=== PATIENT | female | born 2000 | race Caucasian/White ===

== ENCOUNTER 2019-06-05 19:02 | Emergency (ER) | payer MEDICAID, OTHER ==
[~2019-06-05] VITALS: Ht 162.6 cm; Wt 63.1 kg
[~2019-06-05 19:02] MED LIST: ACET500C5 PO; ALBU8.5H8 INH; CIPR500T4 PO; FAMO-96 PO; GUAI5SYR2 PO; IBUP-1561 PO; LACT1CAP57 PO; MAG-19 PO; SAME
[2019-06-05 19:19] VITALS: RESP 18; Ht 162.6 cm; Wt 63.1 kg
[2019-06-05] MEDS ORDERED: DICYCLOMINE 10 MG CAP PO ONE (21:00)
[2019-06-05] MEDS ORDERED: LIDOCAINE/MYLANTA 40 ML BTL PO ONE (21:00)
[2019-06-05 22:13] VITALS: BP 122/65; PULSE 56
--- NOTE | 2019-06-06 02:00 | ERD ---
ER Documentation Chief Complaint Chief Complaint bloating and abdominal discomfort for two weeks with nausea HPI Patient 19-year-old female presented to ED for crampy abdominal pain x2 weeks. Patient denies bleeding. Patient's last menstrual cycle was May 08. Patient states that she has been having diarrhea for the last 2 weeks. Patient states that she was swimming in the [place] and she swallowed some water. Since then she has been experiencing this crampy abdominal pain and nonbloody diarrhea. Patient denies any allergies to medication. Patient states she is not currently on any medications the patient is unaware if she is . She denies dysuria vaginal discharge. ROS All systems reviewed and are negative except as per history of present illness. Medications Home Meds Active Scripts Famotidine* (Pepcid*) 20 Mg Tablet, 20 MG PO BID for 4 Days, TAB Prov:HUSAM FLOWERS PA-C 06/05/19 Magaldrate/Simethicone* (Mylanta*) 355 Ml Susp, 30 ML PO QID PRN for GASTROINTESTINAL UPSET, #1 BOTTLE Prov:HUSAM FLOWERS PA-C 06/05/19 Lactobacillus Rhamnosus* (Culturelle*) 1 Each Cap.sprink, 1 CAP PO BID for 30 Days, CAP Prov:HUSAM FLOWERS PA-C 06/05/19 Ciprofloxacin Hcl* (Ciprofloxacin Hcl*) 500 Mg Tablet, 500 MG PO BID for 7 Days, TAB Prov:HUSAM FLOWERS PA-C 06/05/19 Guaifenesin-Dextromethorphan* (Robitussin* DM) 100MG/10MG/5ML Syrup, 5 ML PO Q6H PRN for COUGH for 6 Days, #120 ML 0 Refills Prov:RENE MORENO PA-C 08/01/16 Ibuprofen* (Motrin*) 400 Mg Tab, 400 MG PO Q6 for 7 Days, #30 TAB 0 Refills Prov:RENE MORENO PA-C 08/01/16 Acetaminophen* (Tylophen*) 500 Mg Capsule, 1 CAP PO Q6H PRN for PAIN AND OR ELEVATED TEMP, #30 CAP 0 Refills Prov:RENE MORENO PA-C 08/01/16 Reported Medications [Same] No Conflict Check 12/02/12 Albuterol Sulfate* (Proair HFA*) 8.5 Gm Hfa.aer.ad, 2 INH INH Q4 10/09/12 Allergies Allergies: Coded Allergies: No Known Allergy (Unverified , 09/26/14) PMhx/Soc Medical and Surgical Hx: pt denies Medical Hx, pt denies Surgical Hx History of Surgery: No Anesthesia Reaction: No Hx Neurological Disorder: No Hx Respiratory Disorders: Yes (ASTHMA ALBUTEROL INH PRN) Hx Cardiac Disorders: No Hx Psychiatric Problems: No Hx Miscellaneous Medical Probl: No Hx Alcohol Use: No Hx Substance Use: No Hx Tobacco Use: No Smoking Status: Never smoker FmHx Family History: No diabetes, No coronary disease, No other Physical Exam Vitals Vital Signs Date Temp Pulse Resp B/P (MAP) Pulse Ox O2 O2 Flow FiO2 Time Delivery Rate 06/05/19 56 122/65 22:13 (84) 06/05/19 98.3 88 18 115/68 97 19:19 (84) Physical Exam GENERAL: The patient is well-appearing, well-nourished, in no acute distress HEENT: Atraumatic. Conjunctivae are pink. Pupils equal, round, and reactive to light. There is no scleral icterus. Tympanic membranes clear bilaterally. Oropharynx clear. No nystagmus or photophobia. NECK: C-spine is soft and supple. There is no meningismus. There is no cervical lymphadenopathy. CHEST: Clear to auscultation bilaterally. There are no rales, wheezes or rhonchi. HEART: Regular rate and rhythm. No murmurs, clicks, rubs or gallops. ABDOMEN:Soft, nontender and nondistended. Good bowel sounds. No rebound or guarding. No gross peritonitis. No gross organomegaly or masses. No Fernandez si gn or McBurney point tenderness. BACK: No midline or flank tenderness. Results 24 hrs Laboratory Tests Test 06/05/19 21:17 06/05/19 21:28 Urine Color STRAW Urine Clarity CLEAR Urine pH 6.0 Urine Specific [place] 1.003 Urine Ketones NEGATIVE mg/dL Urine Nitrite NEGATIVE mg/dL Urine Bilirubin NEGATIVE mg/dL Urine Urobilinogen NEGATIVE mg/dL Urine Leukocyte Esterase TRACE Malissa/ul Urine Microscopic RBC 0 /HPF Urine Microscopic WBC 9 /HPF Urine Squamous Epithelial Cells FEW /HPF Urine Bacteria FEW /HPF Urine Hemoglobin NEGATIVE mg/dL Urine Glucose NEGATIVE mg/dL Urine Total Protein NEGATIVE mg/dl POC Beta HCG, Qualitative NEGATIVE Current Medications Medications Dose Sig/Kayce Start Time Status Last (Trade) Ordered Route PRN Stop Time Admin Dose Reason Admin 40 ml ONCE ONCE 06/05/19 DC 06/05/19 Miscellaneous PO 21:00 21:16 Medication 06/05/19 21:01 (Gi Cocktail (2)) Dicyclomine 10 mg ONCE ONCE 06/05/19 DC 06/05/19 HCl PO 21:00 21:15 (Bentyl) 06/05/19 21:01 Procedures/MDM ED course: The patient was stable throughout the ED course. The patient and/or family informed of laboratory and diagnostic imaging results throughout the ED course. Medications given in ER: GI cocktail Bentyl Patient tolerated medication well with no adverse reactions. Patient reported improvement in pain. Medical decision making: Patient is 19-year-old female presented to ED for crampy abdominal pain with diarrhea for 2 weeks. Patient was most concerned because she was swimming in [facility] 2 weeks ago and swallowed some water since then she is been having the symptoms. Patient states the diarrhea is nonbloody. Patient's physical exam was unremarkable her abdomen was soft nontender. The patient was afebrile. The patient was given a GI cocktail in the ED and Bentyl upon reevaluation the patient appears to be doing much better. At this time I have low suspicion for acute appendicitis, ectopic , , cholelithiasis, cholecystitis, Rachell Choledocholithiasis, pyelonephritis, toxic megacolon, sepsis, diverticulitis ovarian torsion, PID., The patient states she feels much better with the medication I gave her. I meant to treat the patient outpatient with Mat for infectious diarrhea. I advised patient she needs follow-up with her primary care doctor regarding this visit in 1 to 2 days. Advised the patient symptoms worsen she should return to ER immediately. The patient had no further questions in agreement to the treatment plan Prescription for home: Es, Mat Nieto Culturelle I have discussed with the patient proper use and common side effects to expert with the medication . I advised the patient/family to speak with the pharmacist dispensing the medication to be advised of any potential drug interactions with other medication or supplements they may be taking. Discharge: At this time, patient is stable for discharge and outpatient management. I have instructed the patient to follow-up with his\her primary care physician in 1 to 2 days. I have discussed with the patient the possibility of needing to see a specialist for further work-up and imaging studies if symptoms persist. I have instructed the patient to promptly return to the ER for any new or worsening symptoms including increased pain, fever, nausea, vomiting, weakness or LOC. The patient and\or family expressed understanding of and agreement with this plan. All questions were answered. Home care instructions were provided. Disclaimer: Inadvertent spelling and grammatical errors are likely due to EHR\dictation software use and do not reflect on the overall quality of patient care. Also, please note that the electronic time recorded on the note does not necessarily reflect the actual time of the patient encounter. Departure Diagnosis: Primary Impression: Abdominal cramps Additional Impression: Acute diarrhea Condition: Stable Patient Instructions: Abdominal Pain, Vomiting And Diarrhea, Nonspecific (Adult) Referrals: [facility] ([facility]) [facility] YOU HAVE RECEIVED A MEDICAL SCREENING EXAM AND THE RESULTS INDICATE THAT YOU DO NOT HAVE A CONDITION THAT REQUIRES URGENT TREATMENT IN THE EMERGENCY DEPARTMENT. FURTHER EVALUATION AND TREATMENT OF YOUR CONDITION CAN WAIT UNTIL YOU ARE SEEN IN YOUR DOCTORS OFFICE WITHIN THE NEXT 1-2 DAYS. IT IS YOUR RESPONSIBILITY TO MAKE AN APPOINTMENT FOR FOLOW-UP CARE. IF YOU HAVE A PRIMARY DOCTOR --you should call your primary doctor and schedule an appointment IF YOU DO NOT HAVE A PRIMARY DOCTOR YOU CAN CALL OUR PHYSICIAN REFERRAL HOTLINE AT IF YOU CAN NOT AFFORD TO SEE A PHYSICIAN YOU CAN CHOSE FROM THE FOLLOWING [facility] [address] [facility] [address] [facility] [address] [facility] [address] [facility]. [facility] [address] [facility]. [facility]. [address] [facility] YOU HAVE RECEIVED A MEDICAL SCREENING EXAM AND THE RESULTS INDICATE THAT YOU DO NOT HAVE A CONDITION THAT REQUIRES URGENT TREATMENT IN THE EMERGENCY DEPARTMENT. FURTHER EVALUATION AND TREATMENT OF YOUR CONDITION CAN WAIT UNTIL YOU ARE SEEN IN YOUR DOCTORS OFFICE WITHIN THE NEXT 1-2 DAYS. IT IS YOUR RESPONSIBILITY TO MAKE AN APPOINTMENT FOR FOLOW-UP CARE. IF YOU HAVE A PRIMARY DOCTOR --you should call your primary doctor and schedule and appointment IF YOU DO NOT HAVE A PRIMARY DOCTOR YOU CAN CALL OUR PHYSICIAN REFERRAL HOTLINE AT . IF YOU CAN NOT AFFORD TO SEE A PHYSICIAN YOU CAN CHOSE FROM THE FOLLOWING [facility] INSTITUTIONS: [facility] [address] [place] [address] [facility] [address] [place] [address] [facility] [address] [place] [address] Additional Instructions: Call your primary care doctor TOMORROW for an appointment during the next 1-2 days.See the doctor sooner or return here if your condition worsens before your appointment time. HUSAM FLOWERS PA-C Jun 06, 2019 02:00
== END 2019-06-05 22:14 | disposition home or self-care (01) ==
LOC: FTE 19:02
DX: R10.9 Unspecified abdominal pain (principal); R19.7 Diarrhea, unspecified; J45.909 Unspecified asthma, uncomplicated
CPT/HCPCS: 81001; 81025; Z7502; Z7610; 99283